=== PATIENT | female | born 1980 | race Caucasian/White ===

== ENCOUNTER 2019-04-10 07:03 | Emergency (ER) | payer BC ==
--- NOTE | 2019-04-10 07:51 | ED ---
Lower Extremity - HPI Summary HPI Summary: Patient is a 39 y/o F presenting to [facility] with complaints of LLE pain and lower back pain. She states that she has been experiencing back issues since 2017. Patient states that at the time, she was doing a burpee and experienced onset of back pain. Patient was evaluated for her back pain, she was placed on physical therapy for eight months, no imaging was done at the time. She states that she has been experiencing back pain intermittently since but states that the pain has overall been tolerable. Patient notes that she has been experiencing more pain over the past week but has been able to control it with ibuprofen usage. Around midnight 04/10/19, the patient had onset of "excruciating " back pain after rolling over. She used telehealth, patient was advised to take more ibuprofen, Tylenol, and the Flexeril she had from a previous prescription. The provider she spoke with also called in a prescription for steroids which she has not filled yet. Patient states that the back pain has since resolved but she has had continued LLE pain. She notes that this is the first time she has had LLE pain and that she has experienced pain of this level of severity. Pain starts at her left buttock area and radiates downward. She states that she feels her LLE "falling asleep". No recent trauma noted. No surgeries to her back reported. She denies Hx of sciatica and herniated discs. No FMHx of blood disorders noted. NKDA reported. Home medications and allergies are reviewed. Home Medications Medication Instructions Recorded Confirmed Type Acetaminophen TAB* [Tylenol TAB*] 325 mg PO Q4H PRN 04/10/19 04/10/19 History Cholecalciferol TAB* [Vitamin D 1,000 unit PO DAILY 04/10/19 04/10/19 History TAB*] Cyclobenzaprine TAB* [Flexeril 10 5 mg PO BID PRN 04/10/19 04/10/19 History MG TAB*] Ibuprofen TAB* [Advil TAB*] 200 mg PO Q6H PRN 04/10/19 04/10/19 History - History of Current Complaint Chief Complaint: EDExtremityLower Stated Complaint: BACK PAIN PER PT Time Seen by Provider: 04/10/19 07:39 Hx Obtained From: Patient Onset of Pain: Prior to Arrival Onset/Duration: Still Present Severity Currently: Severe Pain Intensity: 8 Pain Scale Used: 0-10 Numeric Timing: Constant Location: Is Discrete @ - lower back, LLE Associated Signs And Symptoms: Positive: Other - lower back and LLE pain, LLE "falling asleep" - Allergies/Home Medications Allergies/Adverse Reactions: Allergies Allergy/AdvReac Type Severity Reaction Status Date / Time No Known Allergies Allergy Verified 04/10/19 07:19 Home Medications: Home Medications Acetaminophen TAB* [Tylenol TAB*] 325 mg PO Q4H PRN 04/10/19 [History Confirmed 04/10/19] Cholecalciferol TAB* [Vitamin D TAB*] 1,000 unit PO DAILY 04/10/19 [History Confirmed 04/10/19] Cyclobenzaprine TAB* [Flexeril 10 MG TAB*] 5 mg PO BID PRN 04/10/19 [History Confirmed 04/10/19] Ibuprofen TAB* [Advil TAB*] 200 mg PO Q6H PRN 04/10/19 [History Confirmed ] PMH/Surg Hx/FS Hx/Imm Hx Musculoskeletal History: Reports: Hx Back Problems Sensory History: Denies: Hx Legally Blind, Hx Deafness Opthamlomology History: Denies: Hx Legally Blind EENT History: Denies: Hx Deafness Infectious Disease History: No Infectious Disease History: Denies: Traveled Outside the [place] in Last 30 Days - Family History Known Family History: Negative: Blood Disorder - Social History Alcohol Use: Rare Substance Use Type: Reports: None Smoking Status (MU): Never Smoked Tobacco Review of Systems Positive: Myalgia - LLE and lower back Positive: Paresthesia - LLE "falling asleep" All Other Systems Reviewed And Are Negative: Yes Physical Exam - Summary Physical Exam Summary: Constitutional: Well-developed, Well-nourished, Alert. (-) Distressed Skin: Warm, Dry HENT: Normocephalic; Atraumatic Eyes: Conjunctiva normal Neck: Musculoskeletal ROM normal neck. (-) JVD, (-) Stridor, (-) Tracheal deviation Cardio: Rhythm regular, rate normal, Heart sounds normal; Intact distal pulses; The pedal pulses are 2+ and symmetric. Radial pulses are 2+ and symmetric. (-) Murmur Pulmonary/Chest wall: Effort normal. (-) Respiratory distress, (-) Wheezes, (-) Rales Abd: Soft, (-) tenderness, (-) Distension, (-) Guarding, (-) Rebound Musculoskeletal: (-) Edema; pain at range of SI joint and piriformis muscle Lymph: (-) Cervical adenopathy Neuro: Alert, Oriented x3 Psych: Mood and affect Normal Triage Information Reviewed: Yes Vital Signs On Initial Exam: Initial Vitals Temp Pulse Resp BP Pulse Ox 99.1 F 112 18 126/91 99 04/10/19 07:16 04/10/19 07:16 04/10/19 07:16 04/10/19 07:16 04/10/19 07:16 Vital Signs Reviewed: Yes Procedures - Sedation Patient Received Moderate/Deep Sedation with Procedure: No Diagnostics - Vital Signs Vital Signs Temp Pulse Resp BP Pulse Ox 04/10/19 07:16 99.1 F 112 18 126/91 99 - Laboratory Lab Statement: Any lab studies that have been ordered have been reviewed, and results considered in the medical decision making process. Lower Extremity Course/Dx - Course Course Of Treatment: Patient is a 39 y/o F presenting to [facility] with complaints of LLE pain and lower back pain. Around midnight 04/10/19, the patient had onset of "excruciating" back pain after rolling over. She used telehealth, patient was advised to take more ibuprofen, Tylenol, and the Flexeril she had from a previous prescription. The provider she spoke with also called in a prescription for steroids which she has not filled yet. Patient states that the back pain has since resolved but she has had continued LLE pain. She notes that this is the first time she has had LLE pain and that she has experienced pain of this level of severity. Pain starts at her left buttock area and radiates downward. She states that she feels her LLE "falling asleep". No recent trauma noted. No surgeries to her back reported. She denies Hx of sciatica and herniated discs. On physical exam, pain at range of SI joint and piriformis muscle noted. During ED course, patient received Prednisone 60 mg PO, Lidocaine patch, and Toradol 60 mg IM. Patient was discharged to home and given PCP followup. - Diagnoses Provider Diagnoses: Sciatica, Lower back pain Discharge ED - Sign-Out/Discharge Documenting (check all that apply): Patient Departure - discharge - Discharge Plan Condition: Stable Disposition: HOME Patient Education Materials: Sciatica (ED), Back Pain (ED) Referrals: Thao Teran MD [Primary Care Provider] - 3 Days Additional Instructions: PLEASE RETURN FOR ANY NEW OR CONCERNING SYMPTOMS. PLEASE FOLLOW UP WITH YOUR PRIMARY CARE PHYSICIAN WITHIN THREE DAYS. - Billing Disposition and Condition Condition: STABLE Disposition: Home - Attestation Statements Document Initiated by Scribpérez: Yes Documenting Scribe: EDUARD CASTRO Provider For Whom Henrique is Documenting (Include Credential): LATIA ARMAS DO Scribe Attestation: IEDUARD, scribed for LATIA ARMAS DO on 04/10/19 at 1108. Scribe Documentation Reviewed: Yes Provider Attestation: The documentation as recorded by the EDUARD walters accurately reflects the service I personally performed and the decisions made by LATIA byrd DO Status of Scribe Document: Viewed
[2019-04-10] MEDS ORDERED: Lidocaine PATCH 5%* 1 PATCH TRANSDERM ONE (07:57)
[2019-04-10] MEDS ORDERED: Ketorolac *IM* INJ* 60 MG/2 ML VIAL IM ONE (07:57)
[2019-04-10 09:27] VITALS: BP 100/65
[2019-04-10] MEDS ORDERED: Lidocaine Patch REMOVE* 1 NOTE MISC PATCH OFF SCH (20:00)
== END 2019-04-10 09:35 | disposition home or self-care (01) ==
LOC: ED 07:03
DX: M54.42 Lumbago with sciatica, left side (principal)
CPT/HCPCS: 96372; 99282; A9270-GY; J1885; J7512